=== PATIENT | male | born 1950 | race Caucasian/White ===

== ENCOUNTER 2016-05-31 22:25 | Emergency (ER) | payer OTHER ==
[2016-05-31 22:36] VITALS: BP 147/81; PULSE 91; TEMP 97.9; BMI 23.6
--- NOTE | 2016-05-31 22:44 | PDOC ---
History of Present Illness - General Chief Complaint: Back Pain Stated Complaint: BACK PAIN History Source: Patient Exam Limitations: No Limitations - History of Present Illness Initial Comments: 05/31/16 22:49 66 yo has been having sciatica like symptoms especially when getting up from a sitting position, has seen the chiropracter twice - most recently yesterday- tonight, trying to get up from the couch, he got intense pain, that just wont allow him to stand up now. Timing/Duration: 1 week Severity: moderate Modifying Factors: improves with: other (chiropracter) Associated Symptoms: denies: denies symptoms Past History - Past Medical History Allergies/Adverse Reactions: Allergies Allergy/AdvReac Type Severity Reaction Status Date / Time No Known Allergies Allergy Verified 05/31/16 23:02 Home Medications: Ambulatory Orders Ibuprofen 800 mg PO TID #90 tablet MDD 3 05/31/16 Ibuprofen [Motrin -] 400 mg PO ONCE 05/31/16 Ondansetron [Zofran Odt -] 4 mg SL TID #21 od.tablet 05/31/16 Oxycodone HCl/Acetaminophen [Percocet 5-325 mg Tablet] 1 - 2 tab PO Q6H #20 tab MDD 5 05/31/16 Other medical history: SEEING CHIROPRACTOR FOR BACK TIGHTNESS - Psycho/Social/Smoking Cessation Hx Anxiety: No Suicidal Ideation: No Smoking History: Never smoked Review of Systems - Review of Systems Able to Perform ROS?: Yes Is the patient limited Frisian proficient: No Constitutional: No: Symptoms Reported HEENTM: No: Symptoms Reported Respiratory: No: Symptoms reported Cardiac (ROS): No: Symptoms Reported ABD/GI: No: Symptoms Reported : No: Symptoms Reported Musculoskeletal: Yes: See HPI Integumentary: No: Symptoms Reported Neurological: No: Symptoms reported Endocrine: No: Symptoms Reported Hematologic/Lymphatic: No: Symptoms Reported All Other Systems: Reviewed and Negative *Physical Exam - Vital Signs Last Vital Signs Temp Pulse Resp BP Pulse Ox 97.9 F 91 H 16 147/81 99 05/31/16 22:26 05/31/16 22:26 05/31/16 22:26 05/31/16 22:26 05/31/16 22:26 - Physical Exam Comments: 05/31/16 22:56 WN/WD, Moves slowly, prefers to stand. tender at sciatic notch on left...... otherwise unremarkable General Appearance: No: Apparent Distress HEENT: positive: EOMI, PRAVEEN, Normal ENT Inspection Neck: positive: Supple Respiratory/Chest: positive: Lungs Clear, Normal Breath Sounds Cardiovascular: positive: Regular Rhythm, Regular Rate Gastrointestinal/Abdominal: positive: Normal Bowel Sounds, Flat, Soft Rectal Exam: positive: deferred Musculoskeletal: positive: Decreased Range of Motion, Other (Left Sided Sciatica ) *DC/Admit/Observation/Transfer Diagnosis at time of Disposition: Sciatica neuralgia Qualifiers: Laterality: left Qualified Code(s): M54.32 - Sciatica, left side - Discharge Dispostion Disposition: HOME Condition at time of disposition: Good Admit: No - Patient Instructions Printed Discharge Instructions: DI for Sciatica, DI for Back Pain With Sciatica Additional Instructions: [place]- Sorry this hurts so badly. Hopefully this gets you over the worst of it. See your doctor later this week. Return to us if any problems. [place]- Dr. Moo Flannery
[2016-05-31] MEDS ORDERED: OXYCODONE/APAP 5/325MG COMBO TABLET PO ONE (22:47)
[2016-05-31] MEDS ORDERED: ONDANSETRON *ODT* 4 MG TABLET SL ONE (22:47)
[2016-05-31] MEDS ORDERED: methylPREDNISolone ACET (DEPO) 80 MG/1 ML VIAL IM ONE (22:47)
[2016-05-31] MEDS ORDERED: TRIAMCINOLONE ACET 40MG/1ML VIAL IM ONE (22:51)
[2016-05-31] MEDS ORDERED: methylPREDNISolone NA SUCC 125 MG/2 ML VIAL IM ONE (22:54)
== END 2016-05-31 23:12 | disposition home or self-care (01) ==
LOC: FER 22:25
PROC: 3E033GC Introduction of Other Therapeutic Substance into Peripheral Vein, Percutaneous Approach (ICD-10-PCS; principal; 2016-05-31)
DX: M54.32 Sciatica, left side (principal)
CPT/HCPCS: 99282-25